=== PATIENT | female | born 1950 | race Caucasian/White ===

== ENCOUNTER 2018-04-05 09:56 | Inpatient (IN) ==
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
[2018-04-05 10:25] LABS: ABG Base Excess -2.7 mmol/L (-2-2); ABG PCO2 32 mmHg (38-42); ABG PO2 88 mmHg (61-120)
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
[2018-04-05 11:10] LABS: Baso % (Auto) 0.6 % (0.0-2.0); Eos % (Auto) 0.4 % (0.0-4.0); Hematocrit 37.1 % (35.0-46.0); Hemoglobin 12.7 gm/dL (11.6-15.3); Lymph # (Auto) 1.9 th/mm3 (1.0-4.8); Lymph % (Auto) 22.9 % (9.0-44.0); Mean Corpuscular HGB Conc 34.2 % (32.0-36.0); Mean Corpuscular Hemoglobin 28.4 pg (27.0-34.0); Mean Corpuscular Volume 83.1 fL (80.0-100.0); Mono # (Auto) 0.3 th/mm3 (0.0-0.9); Mono % (Auto) 3.4 % (0.0-8.0); Neut # (Auto) 5.9 th/mm3 (1.8-7.7); Neut % (Auto) 72.7 % (16.0-70.0); Platelet Count 254 th/mm3 (150-450); Red Blood Count 4.46 mil/mm3 (4.00-5.30); Red Cell Distribution Width 13.9 % (11.6-17.2); White Blood Count 8.2 th/mm3 (4.0-11.0)
[2018-04-05 11:28] LABS: Bilirubin,Urine Negative (Negative); Clarity,Urine Clear (Clear); Color,Urine Straw (Yellw/Straw); Glucose,Urine (UA) Negative (Negative); Hyaline Casts,Urine 1 /lpf (0-3); Leukocyte Esterase,Urine Negative (Negative); Mucus,Urine Few /lpf (Occasional); Nitrite,Urine Negative (Negative); Specific Gravity,Urine 1.006 (1.002-1.035)
[2018-04-05 11:31] LABS: Amphetamine Screen,Urine Neg (Neg); Barbiturate Screen,Urine Neg (Neg); Cannabinoid Screen,Urine Neg (Neg); Cocaine Screen,Urine Neg (Neg)
[2018-04-05 11:31] LABS: Calcium 8.8 mg/dL (8.5-10.1); Carbon Dioxide 22.6 meq/L (21.0-32.0)
[2018-04-05 11:33] LABS: Opiate Screen,Urine Neg (Neg)
[2018-04-05 11:40] LABS: Thyroid Stimulating Hormone 0.159 uIU/mL (0.358-3.740)
[2018-04-05] MEDS ORDERED: Acetaminophen 325 MG Tablet PO ONE (15:33)
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
[2018-04-05] MEDS ORDERED: Aluminum/Magnesium/Simethacone Susp 30 ML UDC PO PRN (16:07)
[2018-04-05 20:44] LABS: Albumin 4.9 g/dL (3.4-5.0)
[2018-04-05 20:47] LABS: Free T4 (Free Thyroxine) 0.99 ng/dL (0.76-1.46)
[2018-04-05] MEDS ORDERED: Acetaminophen 325 MG Tablet PO PRN (22:31)
[2018-04-06] MEDS: Levothyroxine 100 MCG Tablet PO SCH (05:56)
[2018-04-06 08:56] LABS: Calcium 9.6 mg/dL (8.5-10.1); Carbon Dioxide 25.4 meq/L (21.0-32.0); Potassium 4.1 meq/L (3.5-5.1)
[2018-04-06 09:00] LABS: Chol/HDL Ratio 2.73 Ratio; HDL Cholesterol 89.1 mg/dL (40.0-60.0)
[2018-04-06] MEDS: Folic Acid 1 MG Tablet PO SCH (09:09)
[2018-04-06] MEDS: amLODIPine 5 MG Tablet PO SCH (09:09)
[2018-04-06] MEDS: Multivitamin/Minerals Therapeutic Tablet PO SCH (09:12)
[2018-04-06 10:44] LABS: Hemoglobin A1c 4.7 % (4.3-6.0)
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
[2018-04-06] MEDS: LORazepam 1 MG Tablet PO PRN (21:24)
[2018-04-07] MEDS: Levothyroxine 100 MCG Tablet PO SCH (06:22)
[2018-04-07] MEDS: Folic Acid 1 MG Tablet PO SCH (08:35)
[2018-04-07] MEDS: Multivitamin/Minerals Therapeutic Tablet PO SCH (08:35)
[2018-04-07] MEDS: amLODIPine 5 MG Tablet PO SCH (08:35)
--- NOTE | 2018-04-07 16:12 | P.PNPSY ---
Subjective Remarks: This is a request for second opinion. Admission note was reviewed and I agree with the history. Patient was seen and case was discussed with nursing. Patient was evaluated with her significant other in the room. Patient is regretting her decision and her actions. She believes it may have been because of all alcohol and untreated major depressive episode. Today she is tearful and sad but says she does not have suicidal ideation intent or plan. Her significant other confirms that she did not make any suicidal statements to him today. She is hopeful that the Effexor will help her. Eating and sleeping well. CIWA is 0 Mental Status Examination Appearance: Disheveled Consciousness: Alert Orientation: x4 Motor Activity: Normal gait Speech: Unremarkable Language: Adequate Fund of Knowledge: Adequate Attention and Concentration: Adequate Memory: Unremarkable Mood: Sad, Anxious Affect: Sad, Anxious, Other (Tearful) Thought Process & Associations: Intact Thought Content: Appropriate Hallucination Type: None Delusion Type: None Suicidal Ideation: Yes (denies at this moment) Suicidal Plan: No Suicidal Intention: No Homicidal Ideation: No Homicidal Plan: No Homicidal Intention: No Insight: Poor Judgment: Impulsive Assessment and Plan - Plan Plan: I agree with the first opinion. Criteria include suicide attempt Justification for Continued Inpatient Stay: Patient would decompensate in a less restrictive setting
[2018-04-08] MEDS: LORazepam 1 MG Tablet PO PRN ×2 (01:04→21:00)
[2018-04-08] MEDS: Levothyroxine 100 MCG Tablet PO SCH (07:10)
[2018-04-08] MEDS: Multivitamin/Minerals Therapeutic Tablet PO SCH (08:21)
[2018-04-08] MEDS: Folic Acid 1 MG Tablet PO SCH (08:21)
[2018-04-08] MEDS: amLODIPine 5 MG Tablet PO SCH (08:21)
--- NOTE | 2018-04-08 16:08 | P.PNPSY ---
Subjective Chief Complaint: I wanted to kill myself Remarks: Patient was seen today for psychiatric reevaluation. Documentation from Dr. Luna during the weekend reviewed. On psychiatric evaluation today the patient is calm, cooperative, pleasant. She reports that she feels much better. She had a conversation with her significant mother, they have agreed that he is going to stop watching scary shows and is going to put more attention to her. She denies SI/HI/VH/AH. Has been compliant with medications, no significant side effects. Is oriented 3. Mental Status Examination Appearance: Disheveled Consciousness: Alert Orientation: x4 Motor Activity: Normal gait Speech: Unremarkable Language: Adequate Fund of Knowledge: Adequate Attention and Concentration: Adequate Memory: Unremarkable Mood: Sad, Anxious Affect: Sad, Anxious, Other (Tearful) Thought Process & Associations: Intact Thought Content: Appropriate Hallucination Type: None Delusion Type: None Suicidal Ideation: Yes (denies at this moment) Suicidal Plan: No Suicidal Intention: No Homicidal Ideation: No Homicidal Plan: No Homicidal Intention: No Insight: Poor Judgment: Impulsive Assessment and Plan - Assessment (1) Major depressive disorder Code(s): F32.9 - Major depressive disorder, single episode, unspecified Status : Acute - Plan Plan: Patient continued to endorse symptomatology of depression, will increase Effexor to 50 mg daily. See what is 0. Brief supportive psychotherapy provided. Justification for Continued Inpatient Stay: Patient has an elevated risk of danger to self.
[2018-04-09] MEDS: Levothyroxine 100 MCG Tablet PO SCH (07:16)
[2018-04-09] MEDS: Folic Acid 1 MG Tablet PO SCH (10:20)
[2018-04-09] MEDS: amLODIPine 5 MG Tablet PO SCH (10:20)
[2018-04-09] MEDS: Multivitamin/Minerals Therapeutic Tablet PO SCH (10:21)
--- NOTE | 2018-04-09 15:13 | P.PNPSY ---
Subjective Chief Complaint: I wanted to kill myself Remarks: The patient was seen today for psychiatric reevaluation. The patient has a brighter affect, better mood. She reports good sleep, good level of appetite, she seems to be more insightful about recent suicidal attempt. Able to tell me that she regrets her actions, she has spoken with her they have an agreement to monitor each other better their behavior. She denies suicidal enemas ideation at this moment, denies visual and auditory hallucinations. The patient is oriented 3. Mental Status Examination Appearance: Disheveled Consciousness: Alert Orientation: x4 Motor Activity: Normal gait Speech: Unremarkable Language: Adequate Fund of Knowledge: Adequate Attention and Concentration: Adequate Memory: Unremarkable Mood: Sad, Anxious Affect: Sad, Anxious, Other (Tearful) Thought Process & Associations: Intact Thought Content: Appropriate Hallucination Type: None Delusion Type: None Suicidal Ideation: No (denies at this moment) Suicidal Plan: No Suicidal Intention: No Homicidal Ideation: No Homicidal Plan: No Homicidal Intention: No Insight: Fair Judgment: Impulsive Assessment and Plan - Assessment (1) Major depressive disorder Code(s): F32.9 - Major depressive disorder, single episode, unspecified Status : Acute - Plan Plan: Patient continued to endorse symptomatology of depression, continue Effexor to 50 mg daily. CIWA is 0. Brief supportive psychotherapy provided. Justification for Continued Inpatient Stay: The patient has an elevated risk of danger to self.
[2018-04-09 18:38] VITALS: O2SAT 96
[2018-04-10 06:10] VITALS: PULSE 89; RESP 18; TEMP 98.6
[2018-04-10 06:27] VITALS: BP 150/80
[2018-04-10] MEDS: Multivitamin/Minerals Therapeutic Tablet PO SCH (08:10)
[2018-04-10] MEDS: Folic Acid 1 MG Tablet PO SCH (08:10)
[2018-04-10] MEDS: amLODIPine 5 MG Tablet PO SCH (08:10)
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
== END 2018-04-10 13:45 | disposition home or self-care (01) ==
LOC: NEPJ 09:56 → NEDA 16:13 → H260 20:48 → H4EA 04-06 08:36
PROVIDERS: ADMIT Psychiatry & Neurology Psychiatry; ATTEND Psychiatry & Neurology Psychiatry